=== PATIENT | female | born 1980 | race Caucasian/White ===

== ENCOUNTER 2019-05-25 05:24 | Day surgery (SDC) | payer SELFPAY, OTHER ==
[2019-04-06 13:16] VITALS: BMI 34.7
[2019-05-17 11:15] VITALS: BMI 34.7
--- NOTE | 2019-05-22 03:51 | HP.PCM_ITS ---
- Problem List (1) Uterovaginal prolapse Status: Acute Comment: plan tvh bs combo case with kaitlin History and Physical Date of Admission: 05/25/19 Intake Vital Signs 05/17/19 BMI 34.7 05/17/19 Height 5 ft 3 in 05/17/19 Weight: 197 lb 05/17/19 BMI 34.9 05/17/19 BP 160/120 H Intake Visit Reasons: Kaitlin referral,surgrical consult hyst Chief Complaint: kaitlin referral Ambulance Driver Paramedic Required: No Is patient in pain?: No Allergies No Known Allergies Allergy (Verified 05/17/19 11:14) Medications mecobalamin (vitamin B12) 5,000 mcg disintegrating tablet mcg PO 05/17/19 [History] Is last menstrual period known: No Post menopausal: No Patient : No : No [facility] Medical History History of bacterial meningitis (Acute) History of cleft lip (Acute) History of cleft palate (Acute) Surgical History History of cranial surgery (Resolved) S/P right knee surgery (Resolved) S/p bilateral carpal tunnel release (Resolved) s/p cleft lip repair (Resolved) s/p cleft palate repair (Resolved) Family History Mother Hypertension Social History (Updated 05/17/19 @ 11:[address] Mireya Mock MD) Smoking Status: Never smoker alcohol intake: never substance use type: does not use caffeine: Yes what type of physical activity do you participate in: none additional social history: -Myke HPI Kaitlin referral,surgrical consult hyst: Details: CRISTY DOCKERY is a 39 year old who presents for preoperative visit she has pelvic organ prolapse. blood pressure elevated - states they are normal at home Pregancy History 6 Elective abortions Hx Para 5 Spontaneous abortions 1 Hx # Term Pregnancies Ectopic pregnancies Hx # Pregnancies Multiple births # of living children Past Pregnancies Del. Date Name GA/Weeks Outcome Route Bth Weight Infant Gen Labor Lgth Anesthesia Del Locatn Provider FOB Unknown Kiya-1999 Unknown Mona-2001 Unknown Jose Raul-2002 Unknown Shalini-2003 Unknown Edith-2007 ROS Const Constitutional: Denies fatigue, fever(s), headache(s), increased appetite, poor appetite, weight gain or weight loss ENT ENT: Denies dry mouth GI GI: Reports as per HPI; denies abdominal pain, constipation, nausea or vomiting : Denies nipple discharge Skin Skin/Breast: Denies hair loss, change in hair, dry skin, breast lump, breast pain, breast skin changes or nipple discharge Exam Const General: cooperative, healthy appearing, comfortable, no acute distress, well developed Nutritional Appearance: average body habitus Orientation: alert HENMT Head: normal to inspection, normocephalic Ears: hearing grossly normal bilaterally, external ears normal Nose: external nose normal, nares normal Face and sinus: normal facial exam Neck Neck: normal visual inspection, no lymphadenopathy, trachea midline Thyroid: thyroid normal Resp Effort & Inspection: normal respiratory effort Musc Other: gross motor intact no deficits, full bilateral strength Skin General: no rashes or lesions noted Neuro Motor: muscle tone normal throughout Assessment & Plan Problems 1. Uterovaginal prolapse N81.4 plan [facility] bs combo case with kaitlin Evans After discussing the patient's diagnosis and treatment plan options, patient wi shes to proceed with surgical management. I have discussed with the patient the risks, benefits, and alternatives of the procedure which include but are not limited to risks of anesthesia, bleeding, infection, possible damage to bowel, bladder, or surrounding vasculature which could lead to additional surgery to evaluate any complications. Patient agrees to procedure and wishes to proceed. ACOG/uptodate references given for additional information regarding procedure. UPDATE- I have seen the patient and performed any clinically relevant updates to the history and physical exam. Mireya Mock MD Coding Level of Care Code No Charge Diagnoses Uterovaginal prolapse N81.4
[2019-05-25] VITALS (13 sets, daily range): BP systolic 105–156; BP diastolic 61–95; PULSE 63–98; RESP 16–84; TEMP 36.2–37.4; O2SAT 95–100; BMI 34.7
[2019-05-25 06:13] LABS: Internal QC Validated? YES +Cl - CLEAR BKGD; Pregnancy, Urine Negative Negative
[2019-05-25 06:16] LABS: Bedside Glucose 113 mg/dL (70-110)
[2019-05-25 06:18] LABS: Hematocrit 40.8 % (37-47); Hemoglobin 13.7 g/dL (12.0-15.0); Mean Corp Hgb Conc 33.6 g/dL (32-36); Mean Corpuscular Hgb 31.1 pg (27.0-32.0); Mean Corpuscular Volume 92.5 fL (81-99); Mean Platelet Vol. 9.3 fl (6.2-12.0); Platelet Count 336 K/mm3 (150-450); RBC Distribution Width CV 11.3 % (11.6-14.6); RBC Distribution Width SD 38.3 fl (35.1-43.9); Red Blood Count 4.41 M/mm3 (4.2-5.4); White Blood Count 8.5 K/mm3 (4.4-11.0)
[2019-05-25 06:34] LABS: Magnesium 2.1 mg/dL (1.6-2.6)
[2019-05-25] MEDS: Lactated Ringers 1,000 ML 40 ML IV (06:35)
[2019-05-25] MEDS: Celecoxib 200 MG Capsule 400 MG PO (06:36)
[2019-05-25] MEDS: Gabapentin 600 MG Tablet PO (06:39)
[2019-05-25] MEDS: Acetaminophen 500 MG Tablet 1000 MG PO ×3 (06:39→17:35)
[2019-05-25] MEDS: Scopolamine 1mg/72hr Patch 1 PATCH TRANSDERM. (06:40)
[2019-05-25] MEDS: dexAMETHasone 10 MG/ML Vial 8 MG IV (06:40)
[2019-05-25] MEDS: Ondansetron 4 MG/2 ML Vial IV (07:00)
[2019-05-25] MEDS: Lidocaine/D5W 2,000 MG/250 ML IV.SOLN 26.7 MG IV (07:00)
--- NOTE | 2019-05-25 07:27 | OP.PCM_ITS ---
Problem List (1) Uterovaginal prolapse Status: Acute Comment: plan tvh bs combo case with nuha Report of Operation Date of Procedure: 05/25/19 Pre-Operative Diagnosis: prolapse Post-Operative Diagnosis: same Surgery/Procedure Performed:: tvh bs Description of Surgical Findings:: nl uterus tubes ovaries noodle maker: Pepper Quinonez noodle maker: Kailyn Madrigal Type of Anesthesia:: General Special Medications: none Specimen's removed: uterus tubes Drains: nemwan Estimated Blood Loss (mL): 50 Fluids Replaced: crystalloid Description of Procedure: Patient was taken to the operating room and was placed under general anesthesia was prepped and draped in normal sterile fashion in the dorsal lithotomy position. Preoperative antibiotics and SCDs and Newman catheter was placed inside the bladder. Weighted speculum was placed in the vagina and the anterior and posterior lip of the cervix was grasped with 2 Mendel clamps and circu mferentially injected with dilute vasopressin. A circumferential incision was made with a scalpel and the posterior cul-de-sac was entered into sharply and a longneck speculum was placed. The anterior cul-de-sac was also dissected down and entered into sharply and the uterosacral ligaments were clamped cut and suture ligated bilaterally followed by the cardinal ligaments which were Clamped cut and suture ligated bilaterally with 0 Monocryl. The uterus serially descended and progressive bites were taken bilaterally up to the level of the utero-ovarian ligament bilaterally which was clamped transected and double ligated with 0 Monocryl suture and 0 Vicryl free tie. Bilateral fallopian tubes and ovaries were well visualized and noted be within normal limits and the bilateral fallopian tubes were transected across the base with a Maryanne clamp and removed and sutured with 0 Vicryl suture. Excellent hemostasis was noted. The vagina was closed with [id number] 0 Vicryl pop offs including the posterior and anterior peritoneum in the reapproximation. Excellent hemostasis was noted. All instruments removed from the vagina clear urine was noted at the end of the procedure and then dr madrigal proceeded with her portion of the procedure. Grafts/Implants Used: see urogyn operative note - Complications none - Admit VTE Documentation VTE Present on Admission: No VTE Mechan Device Prophylaxis: SCD's Multi Select Codes - Urinary/Genital Urinary/Genital CPT Codes: 35431 TVH+BS/O <250gr uterus
[2019-05-25] MEDS: Cefazolin 2 GM in 0.9% Normal Saline 100 ML IV (07:30)
--- NOTE | 2019-05-25 07:30 | DCINST_ITS ---
Discharge Diet: No Restrictions Discharge Activity: Return to Normal Activity, May Not Drive, May Shower May resume sexual activity in: 6-8 weeks Call your doctor if your incision/area has: Continuous Slow Oozing, Sudden Increased Bleeding, Increased Pain/ Swelling, Increased Redness, Foul Smelling Discharge Call your doctor if you observe: Fever of 101 or Higher, Inability to urinate, Inability to have a bowel movement, Using more than one pad per hour Allergies/Adverse Reactions: Allergies No Known Allergies Allergy (Verified 05/25/19 06:06) Medications to take at Discharge mecobalamin (vitamin B12) 5,000 mcg disintegrating tablet 1 tab PO DAILY 05/17/19 Naproxen [Naprosyn] 250 - 500 mg PO Q8H PRN PRN #30 tab 05/25/19 Oxycodone HCl/Acetaminophen [Percocet 5-325] 1 - 2 tab PO Q6H PRN PRN 7 Days #15 tab 05/25/19 Bad tablePrimary Care Physician: Kodak Colin MD [Primary Care Provider] - Test Results: Test results from this visit will be discussed in further detail at your follow- up appointment, if applicable. Please Follow Up With: Mireya Mock MD - [phone]
--- NOTE | 2019-05-25 07:30 | HYST_PTH ---
PATIENT: CRISTY DOCKERY LOC: [facility] [place] U#:[id number] AGE/SX: 39/F ROOM: RE05/25/[address]: Dr. Mireya Mock MD : 1980 BED: DIS: 05/26/2019 SPEC #: [id number] RECD: 05/25/19 09:48 STATUS: THERESE BHUMI #: [id number] YONNY: 05/25/19 07:[address]: Mireya Mock DEPT: SURGICAL PATHOLOGY RECD BY: Amilcar Domínguez ENTERED: 05/25/19 10:29 SP TYPE: HYSTERECT OTHR DR: MD Dr. Kodak Quiroz MD Tissues: Uterus, NOS Procedures: Surgery Specimen Level V HEADER OPERATION: ERAS, vaginal hysterectomy, salpingectomy PRE-OP DIAGNOSIS: Uterovaginal prolapse N81.4 TISSUE SUBMITTED: Uterus, cervix and bilateral fallopian tubes MICROSCOPIC DIAGNOSIS Uterus, cervix and bilateral fallopian tubes, vaginal hysterectomy and bilateral salpingectomy: Cervix - mild chronic cystic cervicitis. Endometrium - proliferative endometrium. Myometrium - focal superficial adenomyosis. Bilateral fallopian tubes - no pathologic diagnosis. CAMILA:justina 05/26/19 MICROSCOPIC DESCRIPTION Slides are reviewed. GROSS DESCRIPTION Received in fixative is one container labeled with the patient's name and designated uterus, cervix and bilateral fallopian tubes. The specimen consists of a hysterectomy specimen consisting of uterus with cervix and detached bilateral fallopian tubes. The uterus with cervix weighs 137 gm and measures 9 x 7 x 5 cm. The serosal surface is focally ragged and shows instrumentation butler. The ectocervical mucosa is unremarkable. The external os is circular in contour. The endocervical canal measures 3 cm in length and the endocervical mucosa is grullon, glistening and unremarkable. The triangular endometrial cavity measures 4.5 cm in length and 2.5 cm in width. The endometrium is grullon, glistening without any mass lesion and measures 0.1 cm in thickness. Sections of the uterine wall do not reveal any mass lesion and measures up to 2.5 cm in thickness. The fallopian tubes are not identified as right or left and measure 5.5 cm in length and 0.4 cm in diameter and 4.5 cm in length and 0.5 cm in diameter. The fimbrial end is identified. Sections do not reveal any mass lesion. Apartment Locator sections are submitted in eight cassettes as follows: 1 - anterior cervix, 2 - posterior cervix, 3 & 4 - anterior uterine wall, 5 & 6 - posterior uterine wall, 7 & 8 - bilateral fallopian tubes with each cassette containing one fallopian tube. / CAMILA:justina 05/25/19 TC:5 CPT: 77658
[2019-05-25] MEDS: Vasopressin 20 UNITS/ML Vial (07:49)
--- NOTE | 2019-05-25 09:54 | OP.PCM_ITS ---
Problem List (1) Stress incontinence Status: Acute (2) Uterovaginal prolapse Status: Acute Comment: plan tvh bs combo case with nuha Report of Operation Date of Procedure: 05/25/19 Pre-Operative Diagnosis: Uterovaginal prolapse, stress urinary incontinence Post-Operative Diagnosis: Same Surgery/Procedure Performed:: Posterior repair, perineoplasty, mid urethral sling, cystoscopy topper press operator: Jose Miguel Pabon Type of Anesthesia:: General Estimated Blood Loss (mL): 150cc tota Description of Procedure: The patient is a 39-year-old female who presented to the office with pelvic organ prolapse and incontinence. After a full evaluation with urodynamics and cystoscopy, she decided to proceed with surgical intervention. Informed consent was obtained. The patient was taken to the operating room and placed on the operating table. Anesthesia monitored the head, neck, airway, IV access and vital signs throughout the case. Once anesthesia was appropriately administered the patient was placed into exaggerated dorsal lithotomy position and was prepped and draped in usual sterile fashion. A 16 Azeri Ernandez catheter was inserted and the bladder was drained. Dr. Mock performed a hysterectomy and bilateral salpingoectomy and cuff closure. At this time the procedure was turned over to wi. There was no longer an apical defect, and the rugae of the bladder were present, the anterior length of the vagina was significantly shortened. The posterior vaginal wall was infiltrated with vasopressin for hydrostatic dissection and hemostatic control. 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 Dissection was mostly performed sharply due to bleeding. The defect in the posterior wall was closed using 2-0 Vicryl in interrupted fashion. A perineoplasty was performed also with interrupted suture. The vaginal mucosa was closed using running interlocking 2-0 Vicryl. The mid urethra was then identified and injected submucosally. A midline vertical 2 cm incision was made and sharp and blunt dissection was performed on either side of the urethra. The Altis mid urethral sling was inserted using the trochars. The sling lay flat against the urethra without tension. The tensioning suture was cut and the incision was closed using running interlocking 2-0 Vicryl. A cystourethroscopy was then performed through the urethra. The bladder mucosa was entirely intact without abnormality. Bilateral ureteral jets were observed. At this time the Ernandez catheter was replaced and the vagina was packed with Premarin cream and vaginal packing. The patient was awakened and taken to the recovery room in good condition. There were no complications during this procedure. Grafts/Implants Used: Altis - Complications none - Admit VTE Documentation VTE Present on Admission: Yes VTE Mechan Device Prophylaxis: SCD's VTE Pharm Prophylaxis ordered?: Yes
--- NOTE | 2019-05-25 10:03 | DCINST_ITS ---
Discharge Diet: No Restrictions Discharge Activity: Return to Normal Activity, May Not Drive, May Shower May resume sexual activity in: 6-8 weeks Additional Activity Instructions:: No lifting over 5 pounds, no exercise, no strenuous activity, no vacuuming, no sexual activity. Call your doctor if your incision/area has: Continuous Slow Oozing, Sudden Increased Bleeding, Increased Pain/ Swelling, Increased Redness, Foul Smelling Discharge Call your doctor if you observe: Fever of 101 or Higher, Inability to urinate, Inability to have a bowel movement, Using more than one pad per hour, Calf discomfort, Uncontrolled pain Allergies/Adverse Reactions: Allergies No Known Allergies Allergy (Verified 05/25/19 06:06) Medications to take at Discharge mecobalamin (vitamin B12) 5,000 mcg disintegrating tablet 1 tab PO DAILY 05/17/19 Naproxen [Naprosyn] 250 - 500 mg PO Q8H PRN PRN #30 tab 05/25/19 Oxycodone HCl/Acetaminophen [Percocet 5-325] 1 - 2 tab PO Q6H PRN PRN 7 Days #15 tab 05/25/19 Bad tablePrimary Care Physician: Kodak Colin MD [Primary Care Provider] - Test Results: Test results from this visit will be discussed in further detail at your follow- up appointment, if applicable. Please Follow Up With: Kailyn Madrigal MD When: call office for appt Proposed Discharge Date: 05/26/19
[2019-05-25] MEDS: 0.9% Saline Lock 10 ML Syringe IV (11:52)
[2019-05-25] MEDS: Lactated Ringers 1,000 ML 70 ML IV (11:52)
[2019-05-25] MEDS: Cephalexin 500 MG Capsule PO ×2 (11:54→22:20)
[2019-05-25] MEDS: Docusate Sodium 100 MG Capsule PO ×2 (11:54→22:20)
[2019-05-25] MEDS: Ketorolac 30 MG/ML Syringe IV (11:54)
--- NOTE | 2019-05-25 16:18 | NURSING ---
IV attempt x2 to restart without success to right arm. pt consult with .
[2019-05-25] MEDS: Ketorolac 10 MG Tablet PO (17:35)
[2019-05-26] MEDS: Acetaminophen 500 MG Tablet 1000 MG PO ×3 (00:20→13:02)
[2019-05-26] MEDS: Ketorolac 10 MG Tablet PO ×3 (00:20→13:02)
[2019-05-26 03:50] VITALS: BP 130/71; PULSE 82; RESP 16; TEMP 36.9; O2SAT 97
[2019-05-26 06:36] LABS: Hemoglobin 11.4 g/dL (12.0-15.0); Mean Corp Hgb Conc 33.5 g/dL (32-36); Mean Corpuscular Hgb 30.9 pg (27.0-32.0); Mean Corpuscular Volume 92.1 fL (81-99); Mean Platelet Vol. 9.8 fl (6.2-12.0); Platelet Count 275 K/mm3 (150-450); RBC Distribution Width CV 11.4 % (11.6-14.6); RBC Distribution Width SD 38.2 fl (35.1-43.9); Red Blood Count 3.69 M/mm3 (4.2-5.4); White Blood Count 13.8 K/mm3 (4.4-11.0)
[2019-05-26 07:40] VITALS: BP 123/70; PULSE 77; RESP 18; TEMP 37.1; O2SAT 97
[2019-05-26 07:44] VITALS: O2SAT 94
--- NOTE | 2019-05-26 08:06 | PN.OBGYN_ITS ---
Patient Problems: Active and Suspected Problems (Last Reviewed 05/17/19 @ 11:15 by Amy Spencer) Stress incontinence (Acute) Subjective: denies SOB, CP. Pain controlled. Taking PO well. - Physical Exam Vitals/I&O's: Vital Signs Temp Pulse Resp BP Pulse Ox 98.7 F 77 18 123/70 H 97 05/26/19 07:40 05/26/19 07:40 05/26/19 07:40 05/26/19 07:40 05/26/19 07:40 Oxygen Flow Rate (L/min) 6 Oxygen Delivery Method Room Air Weight: 196 lb 6.91 oz Body Mass Index (BMI) 34.7 Intake and Output for Last 24 Hours 05/24/19 05/25/19 05/26/19 23:59 23:59 23:59 Intake Total 2636.83 / 2636.83 800 / 800 Output Total 2280 / 2280 1500 / 1500 Balance 356.83 / 356.83 -700 / -700 General: Alert, Oriented x3 Abdomen: Soft, Non-Distended Laboratory Results 05/26/19 06:14: WBC 13.8 H, RBC 3.69 L, Hgb 11.4 L, Hct 34.0 L, MCV 92.1, MCH 30.9, MCHC 33.5, RDW Std Deviation 38.2, RDW Coeff of Christine 11.4 L, Plt Count 275, MPV 9.8 Current Medications Acetaminophen (Tylenol) 1,000 mg PO Q6 [facility] Last Admin: 05/26/19 06:47 Dose: 1,000 mg Documented by: Cephalexin (Keflex) 500 mg PO Q12 [facility] Last Admin: 05/25/19 22:20 Dose: 500 mg Documented by: Docusate Sodium (Colace) 100 mg PO BID [facility] Last Admin: 05/25/19 22:20 Dose: 100 mg Documented by: Enoxaparin Sodium (Lovenox) 40 mg SC DAILY [facility] Ketorolac Tromethamine (Toradol) 10 mg PO Q6 [facility] Stop: 05/26/19 18:01 Last Admin: 05/26/19 05:46 Dose: 10 mg Documented by: Magnesium Oxide (Mag-Ox 400) 400 mg PO DAILY PRN PRN PRN Reason: Constipation Nutritional Formula (Lactose Free) (Ensure Enlive) 120 ml PO TIDCM LUAN Ondansetron HCl (Zofran Odt) 4 mg PO Q6H PRN PRN PRN Reason: NAUSEA Oxycodone HCl (Oxyir) 5 - 10 mg PO Q4H PRN PRN PRN Reason: Pain Score 4-10/10 Sodium Chloride () 10 - 40 ml IV UD PRN PRN Reason: SALINE FLUSH Last Admin: 05/25/19 11:52 Dose: 10 ml Documented by: Medical Necessity - Tobacco Use Smoking Status: Never smoker Tobacco Use: Non-smoker Assessment/Plan All Active Problems (Last Reviewed 05/17/19 @ 11:15 by Amy Spencer) Stress incontinence (Acute) Uterovaginal prolapse (Acute) TVH, BS combo case Dr. Madrigal A&P repair Routine postop care Dr Madrigal will evaluate and arrange discharge, probably later today.
[2019-05-26 08:59] VITALS: BP 121/71; PULSE 85; RESP 18; TEMP 37.1; O2SAT 99
[2019-05-26] MEDS: Docusate Sodium 100 MG Capsule PO (09:01)
[2019-05-26] MEDS: Cephalexin 500 MG Capsule PO (09:01)
[2019-05-26] MEDS: Enoxaparin 40 MG/0.4 ML Syringe SC (09:02)
--- NOTE | 2019-05-26 09:12 | NURSING ---
PTS FUENTES & VAGINAL PACKING DC'D. PT TOLERATED WELL.
[2019-05-26 11:34] VITALS: BP 136/74; PULSE 80; RESP 20; TEMP 37; O2SAT 96
--- NOTE | 2019-05-26 13:25 | NURSING ---
Student documentation reviewed.
--- NOTE | 2019-05-26 14:14 | NURSING ---
PT VOIDED 500ML CLOUDY YELLOW URINE. BLADDERSCAN = 23ML. DR COFFMAN MADE AWARE. DC ORDER RECEIVED.
[2019-05-26 16:08] VITALS: BP 136/74; PULSE 80; RESP 20; TEMP 37; O2SAT 96
== END 2019-05-26 16:08 | disposition home or self-care (01) ==
LOC: SDC 05:25 → AC 05:27 → MS3 08:05
PROVIDERS: Anesthesiology; Urology; PCP Family Medicine; Referring Provider Obstetrics & Gynecology; Visit Provider Obstetrics & Gynecology
PROC: (CPT 58260; principal; 2019-05-25 07:10)
PROC: (CPT 57260; 2019-05-25 07:10)
DX: N81.4 Uterovaginal prolapse, unspecified (principal); N39.46 Mixed incontinence; N72 Inflammatory disease of cervix uteri; N80.0 Endometriosis of uterus; R35.0 Frequency of micturition; R35.1 Nocturia
CPT/HCPCS: 00944; 57250; 57288; 58262; C1771; 36415; 81025; 82962; 83735; 85027; 86850; 86900; 86901; 88307; 99251; J7120; A4216; G0463; J2405